=== PATIENT | male | born 1965 | race Asian ===

== ENCOUNTER 2020-08-07 09:20 | Emergency (ER) | payer BC, OTHER ==
[~2020-08-07] VITALS: Ht 160 cm; Wt 64.3 kg
[2020-08-07 09:25] VITALS: BP 140/80
--- NOTE | 2020-08-07 10:18 | RAD ---
AP chest. HISTORY: Covid-19 infection cough, short of air PA and lateral views were taken of the chest. There are mild hazy bilateral infiltrates consistent wi th Covid-19 pneumonia. There is no pleural effusion. Heart is normal in size. IMPRESSION: 1. Mild bilateral areas of infiltrate. Electronically signed by: Tony Gardner MD (08/07/2020 10:16 AM) [facility]
[2020-08-07] MEDS ORDERED: PRED20TA PO (10:31)
[2020-08-07] MEDS ORDERED: AZIT250T PO (10:31)
--- NOTE | 2020-08-07 10:32 | PHYS DOC ---
Past Medical History Past Medical History: No Pertinent History Past Surgical History: Other Additional Past Surgical Histo: ear Smoking Status: Never Smoker Alcohol Use: None General Adult EDM: Chief Complaint: OTHER COMPLAINTS HPI: HPI: Patient is a 54 year old male who presented to ER due to cough and weakness. Patient was diagnosed with COVID-19 infection on July 25, 2020. Patient is required to go back to work by his employer however he feels weak and still has a cough so he wanted to have a medical statement so that he can stay home for another week. Patient denies any fever, no chest pain, no trouble breathing. Patient still has a cough, nonproductive in nature. Review of Systems: Review of Systems: Constitutional: Denies fever or chills. Positive for generalized weakness. Eyes: Denies change in visual acuity. [] HENT: Denies nasal congestion or sore throat. [] Respiratory: Positive for cough, no trouble breathing. Cardiovascular: Denies chest pain or edema. [] GI: Denies abdominal pain, nausea, vomiting, bloody stools or diarrhea. [] : Denies dysuria. [] Musculoskeletal: Denies back pain or joint pain. [] Integument: Denies rash. [] Neurologic: Denies headache, focal weakness or sensory changes. [] Endocrine: Denies polyuria or polydipsia. [] Lymphatic: Denies swollen glands. [] Psychiatric: Denies depression or anxiety. [] Heart Score: Risk Factors: Risk Factors: DM, Current or recent (<one month) smoker, HTN, HLP, family history of CAD, obesity. Risk Scores: Score 0 - 3: 2.5% MACE over next 6 weeks - Discharge Home Score 4 - 6: 20.3% MACE over next 6 weeks - Admit for Clinical Observation Score 7 - 10: 72.7% MACE over next 6 weeks - Early Invasive Strategies Physical Exam: PE: Constitutional: Well developed, well nourished, no acute distress, non-toxic appearance. [] HENT: Normocephalic, atraumatic, bilateral external ears normal, oropharynx moist, no oral exudates, nose normal. [] Eyes: PERRLA, EOMI, conjunctiva normal, no discharge. [] Neck: Normal range of motion, no tenderness, supple, no stridor. [] Cardiovascular:Heart rate regular rhythm, no murmur [] Lungs & Thorax: Bilateral breath sounds clear to auscultation [] Abdomen: Bowel sounds normal, soft, no tenderness, no masses, no pulsatile masses. [] Skin: Warm, dry, no erythema, no rash. [] Back: No tenderness, no CVA tenderness. [] Extremities: No tenderness, no cyanosis, no clubbing, ROM intact, no edema. [] Neurologic: Alert and oriented X 3, normal motor function, normal sensory function, no focal deficits noted. [] Psychologic: Affect normal, judgement normal, mood normal. [] Current Patient Data: Vital Signs: Vital Signs Date Time Temp Pulse Resp B/P (MAP) Pulse Ox O2 Delivery O2 Flow Rate FiO2 08/07/20 09:25 98.2 116 16 140/80 (100) 96 Room Air 98.2 EKG: EKG: [] Radiology/Procedures: Radiology/Procedures: [][facility] [address] [place] [address] IMAGING REPORT Signed PATIENT: DON GALINDO THAWINGACCOUNT: [id number] : 1965 LOCATION: ER AGE: 54 SEX: M EXAM STATUS: REG ER ORD. PHYSICIAN: ALANA CHO DO REASON: COVID-19 INFECTION SINCE 07/25/20, STILL HAS COUGH AND SHORTNESS OF AIR. PROCEDURE: CHEST AP ONLY AP chest. HISTORY: Covid-19 infection cough, short of air PA and lateral views were taken of the chest. There are mild hazy bilateral infiltrates consistent with Covid-19 pneumonia. There is no pleural effusion. Heart is normal in size. IMPRESSION: 1. Mild bilateral areas of infiltrate. Electronically signed by: Tony Perkins MD (08/07/2020 10:16 AM) [facility] DICTATED and SIGNED BY: TONY PERKINS MD DATE: 08/07/20 [id number] 0 Course & Med Decision Making: Course & Med Decision Making Pertinent Labs and Imaging studies reviewed. (See chart for details) Patient is a 54-year-old male who was diagnosed with COVID-19 infection on January 22, 2021, continue to feel weak and have cough. Chest x-ray showed bilateral infiltration. Patient's vital signs are stable, oxygen saturation at 96% on room air. Patient will be discharged home, he will need to stay home for another week and to feel better before go back to work. Lore Disclaimer: Lore Disclaimer: This electronic medical record was generated, in whole or in part, using a voice recognition dictation system. Departure Departure Impression: Primary Impression: COVID-19 virus infection Additional Impression: Pneumonia Disposition: 01 DC HOME SELF CARE/HOMELESS Condition: STABLE Referrals: NO PCP (PCP) Follow up with your doctor next week as needed Patient Instructions: Pneumonia, Adult, Viral Syndrome Additional Instructions: Thank you for visiting our Emergency Department. We appreciate you trusting us with your care. If any additional problems come up don't hesitate to return to visit us. Please follow up with your primary care provider so they can plan additional care if needed and know about the problem that you had. If symptoms worsen come back to the Emergency Department. Any concerning symptoms that start such as chest pain, shortness of air, weakness or numbness on one side of the body, running high fevers or any other concerning symptoms return to the ER. Scripts Azithromycin (ZITHROMAX) 250 Mg Tablet 1 PKG PO UD, #6 TAB Prov: ALANA CHO DO 08/07/20 Prednisone (PREDNISONE) 20 Mg Tablet 1 TAB PO DAILY for 7 Days, #7 TAB Prov: ALANA CHO DO 08/07/20 ALANA CHO DO Aug 07, 2020 10:32
== END 2020-08-07 10:54 | disposition home or self-care (01) ==
LOC: ER 09:20
DX: U07.1 COVID-19 (principal); J18.9 Pneumonia, unspecified organism; R05 Cough; R53.1 Weakness; Z98.890 Other specified postprocedural states
CPT/HCPCS: 71045; 99283